=== PATIENT | female | born 1960 | race Caucasian/White ===

== ENCOUNTER → 2021-02-22 | Outpatient (CLI) | payer BC ==
[2021-02-22 07:24] LABS: BASO # 0.02 (0.02-0.10); EOS # 0.09 (0.04-0.40); EOS % 1.9 % (1.0-5.0); HEMATOCRIT 39.6 % (37.0-47.0); HEMOGLOBIN 13.4 g/dL (12.5-16.0); LYMPH# 1.85 (1.50-4.00); MEAN CELL VOLUME 90 fl (78-100); MEAN CORPUSCULAR HEMOGLOBIN 31 pg (27-31); MEAN CORPUSCULAR HGB CONC 34 g/dL (33-37); MEAN PLATELET VOLUME 10.1 fl (7.4-10.4); MONO # 0.32 (0.20-0.80); NEU # 2.52 (1.40-6.50); PLATELET COUNT 262 K/mm3 (130-400); RED CELL DISTRIBUTION WIDTH 11.8 % (11.5-14.5); WHITE BLOOD COUNT 4.8 K/mm3 (4.8-10.8)
[2021-02-22 07:34] LABS: POTASSIUM 4.2 mmol/L (3.5-5.1)
[2021-02-22 07:35] LABS: ALBUMIN 4.1 g/dL (3.4-4.8)
[2021-02-22 07:36] LABS: CALCIUM 8.6 mg/dL (8.3-10.5)
[2021-02-22 07:39] LABS: TOTAL BILIRUBIN 0.5 mg/dL (0.2-1.2)
== END ==
LOC: LAB 07:07
PROVIDERS: Physician Assistant
DX: Z13.29 Encounter for screening for other suspected endocrine disorder (principal); E78.5 Hyperlipidemia, unspecified

== ENCOUNTER 2021-06-23 18:15 | Emergency (ER) | payer BC ==
[~2021-06-23] VITALS: Ht 170.2 cm; Wt 90.0 kg
[2021-06-23 20:30] VITALS: BP 157/83
== END 2021-06-23 20:32 | disposition home or self-care (01) ==
LOC: ED 18:15
DX: S93.402A Sprain of unspecified ligament of left ankle, initial encounter (principal); X50.9XXA Other and unspecified overexertion or strenuous movements or postures, initial encounter; Y93.01 Activity, walking, marching and hiking

== ENCOUNTER 2021-09-04 08:30 | Outpatient (RCR) | payer BC | END 2021-10-15 | disposition home or self-care (01) | LOC: PT | DX: S93.402D Sprain of unspecified ligament of left ankle, subsequent encounter (principal) ==

== ENCOUNTER → 2021-09-04 | Outpatient (CLI) | payer BC ==
[2021-09-04 10:03] LABS: BASO # 0.03 K/mm3 (0.02-0.10); EOS # 0.12 K/mm3 (0.04-0.40); EOS % 1.3 % (1.0-5.0); HEMATOCRIT 44.2 % (37.0-47.0); HEMOGLOBIN 14.5 g/dL (12.5-16.0); LYMPH# 3.44 K/mm3 (1.50-4.00); MEAN CELL VOLUME 93 fl (78-100); MEAN CORPUSCULAR HEMOGLOBIN 30 pg (27-31); MEAN CORPUSCULAR HGB CONC 33 g/dL (33-37); MONO # 0.61 K/mm3 (0.20-0.80); NEU # 5.26 K/mm3 (1.40-6.50); PLATELET COUNT 336 K/mm3 (130-400); RED BLOOD COUNT 4.77 M/mm3 (4.10-5.30); RED CELL DISTRIBUTION WIDTH 12.4 % (11.5-14.5); WHITE BLOOD COUNT 9.5 K/mm3 (4.8-10.8)
[2021-09-04 10:06] LABS: ALBUMIN 4.4 g/dL (3.4-4.8)
[2021-09-04 10:07] LABS: POTASSIUM 3.9 mmol/L (3.5-5.1)
[2021-09-04 10:08] LABS: CALCIUM 9.2 mg/dL (8.3-10.5)
[2021-09-04 10:09] LABS: TOTAL PROTEIN 7.3 g/dL (6.2-8.1)
[2021-09-04 10:11] LABS: TOTAL BILIRUBIN 0.5 mg/dL (0.2-1.2)
[2021-09-04 22:49] LABS: FOLLICLE STIMULATING HORMONE 75.6 mIU/mL (()); LUTENIZING HORMONE 12.9 mIU/mL (())
== END ==
LOC: LAB 09:39
PROVIDERS: Physician Assistant
DX: E78.5 Hyperlipidemia, unspecified (principal); E89.41 Symptomatic postprocedural ovarian failure; K90.9 Intestinal malabsorption, unspecified

== ENCOUNTER → 2021-09-10 | Outpatient (CLI) | payer BC | LOC: MAMMO 14:12 | DX: Z13.820 Encounter for screening for osteoporosis (principal); M85.80 Other specified disorders of bone density and structure, unspecified site ==

== ENCOUNTER → 2022-02-18 | Outpatient (CLI) | payer BC ==
[2022-02-18 21:57] LABS: HOMOCYSTEINE SERUM OR PLASMA 7.2 umol/L (4.0-14.0)
[2022-02-19 03:43] LABS: CERULOPLASMIN 37 mg/dL (20-60)
[2022-02-20 15:49] LABS: .COPPER,S 1.51 mcg/mL (())
[2022-02-21 11:23] LABS: METHYLMALONIC ACID, SERUM 0.25 nmol/mL (<=0.40)
[2022-02-22 22:20] LABS: VITAMIN B1 158 nmol/L (70-180)
== END ==
LOC: LAB 08:05
PROVIDERS: Psychiatry & Neurology Neurology
DX: G43.109 Migraine with aura, not intractable, without status migrainosus (principal); R42 Dizziness and giddiness; R20.2 Paresthesia of skin

== ENCOUNTER → 2024-02-16 | Outpatient (CLI) | payer BC | LOC: LAB 14:21 | DX: Z12.31 Encounter for screening mammogram for malignant neoplasm of breast (principal) ==